=== PATIENT | female | born 1985 | race Two or more races ===

== ENCOUNTER 2024-07-10 11:26 | Inpatient (IN) | payer OTHER, SELFPAY ==
[2024-07-10] VITALS (17 sets, daily range): BP systolic 111–154; BP diastolic 75–134; BMI 31.5
[2024-07-10] MEDS: NSS 1000 IV ×2 (08:33→22:42)
[2024-07-10 08:39] LABS: % Basophils 0.3 % (0-2); % Eosinophils 0.2 % (0-6); % Immature Granulocytes 0.4 % (0-0.5); % Lymphocytes 12.3 % (20.5-51.1); % Neutrophils 80.8 % (42.2-75.2); Absolute Lymphocytes 1.3 10^3/uL (1.2-3.4); Absolute Monocytes 0.7 10^3/uL (0.1-0.6); Absolute Neutrophils 8.8 10^3/uL (1.4-6.5); Hematocrit 40.4 % (37.0-47.0); Hemoglobin 13.2 g/dL (12.0-16.0); Mean Corp Hgb Conc. 32.7 g/dL (33.0-37.0); Mean Corpuscular Hgb 29.3 pg (27.0-31.0); Mean Corpuscular Volume 89.6 fL (81.0-99.0); Mean Platelet Volume 9.6 fL (7.4-10.4); Nucleated Red Blood Cells % 0 %; Platelet Count 306 10^3/uL (130-400); Red Blood Cell Count 4.51 10^6/uL (4.20-5.40); Red Cell Dist. Width 12.6 % (11.5-14.5); White Blood Cell Count 10.9 10^3/uL (4.8-10.8)
[2024-07-10 08:39] LABS: Urine Albumin Trace (Neg - Trace); Urine Bilirubin 3+ (Negative); Urine Character Clear (Clear); Urine Color Yellow; Urine Glucose Negative (Negative); Urine Ketone Negative (Negative); Urine Leukocyte 1+ (Negative); Urine Nitrite Positive (Negative); Urine Occult Blood 3+ (Negative); Urine Specific Gravity 1.015 (<1.030); Urine Urobilinogen 4+ (Neg - 1+); Urine pH 6.5 (5.0-9.0)
[2024-07-10 08:49] LABS: ALT (SGPT) 19 U/L (0-35); AST (SGOT) 23 U/L (14-36); Albumin 4.9 g/dl (3.5-5.0); Alkaline Phosphatase 102 U/L (38-126); Blood Urea Nitrogen 23 mg/dl (7-17); Calcium 9.6 mg/dl (8.4-10.2); Carbon Dioxide 24 mmol/L (22-30); Chloride 103 mmol/L (98-107); Estimated Creatinine Clearance 87 ml/min; Glucose 127 mg/dl (70-99); Potassium 4.3 mmol/L (3.5-5.1); Sodium 141 mmol/L (135-145); Total Bilirubin 0.7 mg/dl (0.2-1.3); Total Protein 7.7 g/dl (6.3-8.2); eGFR > 60.00
--- NOTE | 2024-07-10 08:56 | ED.GENMED ---
History of Present Illness
General
Chief Complaint: Abdominal Symptoms
Source: patient
Exam Limitations: none
Time Seen by Provider: 07/10/24 07:54
History of Present Illness
History of Present Illness:
38-year-old female right flank and back pain and right lower quadrant pain for the last 24 hours. Some nausea. Some recent UTI-like symptoms. Was treated for UTI with Macrobid although recent urine culture was unremarkable. Started her she is
yesterday which was normal. Has been told in the past that she may interstitial cystitis
Past History
Past History
ED Past Medical History: Other (Questionable interstitial cystitis)
ED Past Surgical History: Gynecological (Breast reduction)
Review of Systems
Review of Systems
All Other Systems: Not applicable
Constitutional: Denies fever or chills
Phy Exam
Physical Exam
Physical Exam:
GENERAL: Alert and oriented in no apparent distress
EYE: Orbits normal.
NECK: Supple
CARDIAC: Regular rate and rhythm without any obvious murmurs.
LUNGS: Clear breath sounds,normal
ABDOMEN: Soft, without focal tenderness or distention. No CVA tenderness
NEUROLOGICAL: Alert and oriented , grossly non-focal
SKIN: Warm and dry, no rash or lesion, no discoloration, skin intact.
MUSCULOSKELETAL: No edema,no deformity.Good color
PSYCH: Normal and appropriate interaction.
Course
Orders/Labs/Results
Orders:
Orders
07/10/24 08:15
HCG, Serum Qualitative Screen Urgent
07/10/24 08:18
CMP [Comprehensive Metabolic Panel] Urgent
Complete Blood Count/With Diff Urgent
07/10/24 08:24
Urinalysis Reflex To Culture Urgent
Date Specimen was Collected: 07/10/24
Time Specimen was Collected: 08:21
Comment: Has menstrual period
Urine Microscopic Reflex Cult Urgent
Urine Culture Urgent
MARQUITA Source: U
Specimen Description:
Date Specimen was Collected: 07/10/24
Time Specimen was Collected: 08:21
07/10/24 08:30
CT Abd/pel Without Iv Or Oral Urgent
Comment:
Reason For Exam: Right lower quadrant/right flank pain
IV Insert/Care/Rem.- Treatment PRN
0.9% Sodium Chloride 1000 ml [Nss] 1,000 ml IV BOLUS
Test Result ONCE
07/10/24 10:13
Ketorolac [Toradol] 15 mg IV NOW STA
07/10/24 10:20
Cefepime HCl [Maxipime] 2,000 mg IV NOW STA
Abnormal Lab Results
07/10/24 07/10/24
08:18 08:24
WBC 10.9 H 10^3/uL
(4.8-10.8)
MCHC 32.7 L g/dL
(33.0-37.0)
Absolute Neuts (auto) 8.8 H 10^3/uL
(1.4-6.5)
Absolute Monos (auto) 0.7 H 10^3/uL
(0.1-0.6)
Neutrophils % 80.8 H %
(42.2-75.2)
Lymphocytes % 12.3 L %
(20.5-51.1)
BUN 23 H mg/dl
(7-17)
Glucose 127 H mg/dl
(70-99)
Ur Occult Blood Reflex 3+ A
(Negative)
Urine Nitrite (Reflex) Positive A
(Negative)
Urine Bilirubin 3+ A
(Negative)
Urine Urobilinogen 4+ A
(Neg - 1+)
Leukocyte Esterase Rfl 1+ A
(Negative)
Urine RBC 3-6 A /HPF
(0-2)
Urine Bacteria (Reflex) Many A
(Negative)
07/10/24 08:18
07/10/24 08:18
Vital Signs
Initial and Last Documented VS:
Initial Vital Signs
Temp Pulse Resp BP Pulse Ox
98.3 F 110 16 150/115 98
07/10/24 07:50 07/10/24 07:50 07/10/24 07:50 07/10/24 07:50 07/10/24 07:50
Last Documented Vital Signs
Temp Pulse Resp BP Pulse Ox
98.3 F 99 16 144/95 99
07/10/24 07:50 07/10/24 10:12 07/10/24 10:12 07/10/24 10:12 07/10/24 10:12
MDM/Problems Addressed
Differential Diagnosis Includes:
Most suspicious of a kidney stone or urologic issue given patient's recent urinary symptoms. To consider appendicitis or ovarian issue. Workup in progress.
*Radiology
Radiology exam reviewed: radiology read reviewed (7 mm obstructing stone right UVJ with hydro-)
*Pulse Oximetry
Patient hypoxic: no
*Critical Care Note
Total Time (30-74mins, 75-104mins- exclusive of procedures): Not Applicable
Update Note
Update Note:
Urinalysis concerning for infection. Discussed with urology. Will go to the OR. Antibiotics. Admit to medicine.
ED Attending Note
-
Portions of this chart may have been created with voice recognition software.� Occasional wrong word or��sound alike� substitutions may have occurred due to the inherent limitations of voice recognition software.
Discharge Plan
Departure
Patient Disposition: Admit
Date of Disposition: 07/10/24
Time of Disposition: 10:21
Presentation/result/management discussed w/ accepting MD/DO: Urology
Discharge Problem:
7 mm obstructing right UVJ stone, Possible UTI
Referrals:
Joao Julien MD [Family Provider] -
Interventions
Interventions:
*Risk Screen - Suicide Last Done: 07/10/24 07:50
*General Assessment Last Done: 07/10/24 08:07
*Neglect/Abuse Screening Last Done: 07/10/24 07:50
ED- Fall Risk Assessment Last Done: 07/10/24 08:07
*ED COVID-19 Vaccine History Last Done: 07/10/24 08:07
PB-Xysfkf-Xlefytglyv Assessment Last Done: 07/10/24 08:07
Discharge Date and Time
Print Language: SETSWANA
[2024-07-10 08:57] LABS: HCG, Serum Qualitative Screen Negative
[2024-07-10 08:57] LABS: Urine Amorphous Seen
[2024-07-10 09:05] LABS: Urine Bacteria Many (Negative)
[2024-07-10] MEDS: TORADOL 15 MG IV ×2 (10:15→14:48)
[2024-07-10] MEDS: MAXIPIME 2000 MG IV (10:31)
--- NOTE | 2024-07-10 11:02 | HPS.HSE ---
Family Physician
-
Family Physician: Joao Julien
Chief Complaint
-
Right flank pain and dysuria.
History of Present Illness
Patient is a 38-year-old female with no prior medical history who presents with few weeks of urinary complaints including dysuria. Over the past 24 hours or so patient developed right flank and right lower quadrant pain radiating to the pubic area.
She has pain with urination. She denies any fever or chills. She has been treated with Macrobid for presumed urinary tract infection/cystitis. Given persistent and escalating symptoms she presented to the emergency room for further evaluation.
Medical History
Past Medical History
Past Medical History: Reports NIDDM (Prediabetes)
Past Surgical History: Reports None
Social History
Tobacco: Non-smoker
Alcohol: None
Drug: None
Living: With Family
Family History
Family History: Not pertinent
Allergies / Home Medications
Allergies reflects when Allergies were last updated in [email or web address].
Home Medications with original date entered in [email or web address]
Allergy/Medication List:
Allergies
Allergy/AdvReac Type Severity Reaction Status Date / Time
No Known Allergies Allergy Verified 07/10/24 08:11
Home Medications
acetaminophen 500 mg tablet (Tylenol Extra Strength) 1,000 mg PO BIDPRN PRN MILD PAIN 07/10/24
alprazolam 0.5 mg tablet (Xanax) 0.5 mg PO TIDPRN PRN ANXIETY 07/10/24
cetirizine 10 mg tablet (Zyrtec) 10 mg PO DAILY 07/10/24
cholecalciferol (vitamin D3) 25 mcg (1,000 unit) capsule (Vitamin D3) 25 mcg PO DAILY 07/10/24
escitalopram oxalate 10 mg tablet (Lexapro) 10 mg PO DAILY 07/10/24
famotidine 20 mg tablet (Pepcid) 20 mg PO DAILYPRN PRN GERD 07/10/24
metformin 500 mg tablet,extended release 24 hr 500 mg PO DAILY 07/10/24
methocarbamol 500 mg tablet 500 mg PO TIDPRN PRN MUSCLE PAINS 07/10/24
naproxen sodium 220 mg tablet (Aleve) 440 mg PO BIDPRN PRN MILD PAIN 07/10/24
phenazopyridine 95 mg tablet 95 mg PO DAILYPRN PRN UTI SYMPTOMS 07/10/24
Review of Systems
-
A 12 point ROS was completed and negative except as noted: Yes
: Reports See HPI
Physical Exam
Vital Signs
Vital Signs
Temp Pulse Resp BP Pulse Ox
98.3 F 99 16 144/95 99
07/10/24 07:50 07/10/24 10:12 07/10/24 10:12 07/10/24 10:12 07/10/24 10:12
Physical Exam
General: Well Developed, Well Nourished and No Apparent Distress
HEENT: NormoCephalic, Moist mucous membranes and Atraumatic
Respiratory: Clear
Cardiac: S1/S2 and Regular Rhythm; No Murmur or Rub
GI: Soft, Non Tender, Non Distended and Normal Bowel Sounds; No Organomegaly
Rectal: Deferred by Provider
Musculoskeletal: No Clubbing, No Cyanosis and No Edema
Skin: No Rash
Neuro: Nonfocal/grossly intact
Laboratory Results
-
07/10/24 08:18
07/10/24 08:18
Laboratory Results
Total Bilirubin 0.7 mg/dl (0.2-1.3) 07/10/24 08:18
AST 23 U/L (14-36) 07/10/24 08:18
ALT 19 U/L (0-35) 07/10/24 08:18
Alkaline Phosphatase 102 U/L (38-126) 07/10/24 08:18
Impression/Plan
-
IMPRESSION:
Obstructive uropathy secondary to 7 mm stone at the right ureterovesicular junction.
Complicated UTI.
Other conditions.
Prediabetes.
Obesity with BMI of 31
PLAN:
Obstructive uropathy secondary to 7 mm stone in the right ureter fascicular junction. Mild right hydronephrosis
Complicated UTI
Urology consultation with plan for cystoscopy and stone manipulation/stent
Empiric antibiotics: Ceftriaxone pending urine cultures
IV hydration
Analgesia
Prediabetes.
Check hemoglobin A1c
Serial blood glucose monitoring
Hold metformin acutely
--- NOTE | 2024-07-10 13:02 | W.PN.URO.CBU ---
Today's Communication / Plan
-
npo to op[ room
Assessment / Plan
-
mm stone 3 weeks wir uti sxs and pos nitruores for op room today will try removal id-f stable other wswe just styent pt aware consented and alt txs s=described
Diagnosis
-
Date of Service: July 10, 2024
-
Patient Diagnosis:
rt 7 mm uvj stone on rt x 3 weesk pos notires and leukocytosis
Post Op Day:
Subjective
-
pain no chills nor fver
Objective
-
Vital Signs
Temp Pulse Resp BP Pulse Ox
98.3 F 99 16 144/95 99
07/10/24 07:50 07/10/24 10:12 07/10/24 10:12 07/10/24 10:12 07/10/24 10:12
Laboratory Results
07/10/24 08:18
07/10/24 08:18
Review of Systems
-
: Dysuria, Frequency, Urgency and Dark Urine
Physical Exam
-
General - well developed, well nourished, no acute distress non toxic
Chest - clear bilaterally
Abdomen - soft, non-tender, positive bowel sounds, no CVAT, no incisional pain or distention
Genitalia - normal
Rectal - normal
Skin - warm & dry with no rash
Neuro - AOx3, no motor deficits
Extremities - no clubbing, no cyanosis, no edema
Incision - clean, dry
Dressing - clean, dry, intact
Care Review
Data Reviewed
Discussed with: Hospitalist and Nursing
CT Scan: Image Pers Reviewed
[2024-07-10] MEDS: MORPHINE SULFATE 2 MG IV (13:10)
[2024-07-10] MEDS: FLUSH (NSS) 1 FLUSH IV (13:10)
--- NOTE | 2024-07-10 15:02 | EDRN ---
Patient taken to room 436-1 by industrial engineering technician.
[2024-07-10] MEDS: STERILE WATER FOR INJECTION 10 ML IV (16:10)
[2024-07-10] MEDS: ROCEPHIN 1000 MG IV (16:10)
[2024-07-10 16:27] LABS: Glucose - Point of Care 95 mg/dl (70-99)
--- NOTE | 2024-07-10 17:51 | W.SUR.POST ---
Surgical Immediate Post Op
Note
Pre Op Diagnosis:
rt distal uretral stone with uti coilc
Post Op Diagnosis: same
Procedure Performed: rt ureteroscpy laser basket extractionstent
Primary Surgeon: ahsan
Secondary Surgeons:
Anesthesia:
general dr Elkins
Estimated Blood Loss:1 cc
Fluids: nss
Drains/Shunts: 6 fr 24 ccm jj stent
Specimens/Cultures: stones
Doppler/Duplex/Angio (Y/N):
Complications: 0
Operative Findings: lg stone in [place] sheatg 7mm horiziontal lie lsaered removed stented
[2024-07-10 17:55] LABS: Glucose - Point of Care 96 mg/dl (70-99)
[2024-07-11 07:05] VITALS: BP 106/72
[2024-07-11 08:16] LABS: % Basophils 0.3 % (0-2); % Eosinophils 0.1 % (0-6); % Immature Granulocytes 0.4 % (0-0.5); % Lymphocytes 21.1 % (20.5-51.1); % Monocytes 8.3 % (1.7-9.3); % Neutrophils 69.8 % (42.2-75.2); Absolute Lymphocytes 1.9 10^3/uL (1.2-3.4); Absolute Monocytes 0.7 10^3/uL (0.1-0.6); Absolute Neutrophils 6.2 10^3/uL (1.4-6.5); Hemoglobin 11.4 g/dL (12.0-16.0); Mean Corp Hgb Conc. 32.6 g/dL (33.0-37.0); Mean Corpuscular Hgb 29.8 pg (27.0-31.0); Mean Corpuscular Volume 91.4 fL (81.0-99.0); Mean Platelet Volume 9.7 fL (7.4-10.4); Nucleated Red Blood Cells % 0 %; Platelet Count 280 10^3/uL (130-400); Red Blood Cell Count 3.83 10^6/uL (4.20-5.40)
[2024-07-11 08:42] LABS: Blood Urea Nitrogen 17 mg/dl (7-17); Calcium 8.9 mg/dl (8.4-10.2); Carbon Dioxide 23 mmol/L (22-30); Chloride 106 mmol/L (98-107); Estimated Creatinine Clearance 109 ml/min; Glucose 102 mg/dl (70-99); Sodium 141 mmol/L (135-145); eGFR > 60.00
[2024-07-11] MEDS: LEXAPRO 10 MG PO (08:50)
[2024-07-11] MEDS: ZYRTEC 10 MG PO (08:51)
[2024-07-11] MEDS: STERILE WATER FOR INJECTION 10 ML IV (09:00)
[2024-07-11] MEDS: ROCEPHIN 1000 MG IV (09:00)
--- NOTE | 2024-07-11 09:23 | W.DS.TRANS ---
DC Summary - File Conversion Operator
-
Discharge Instructions:
Discharge Diagnosis/Procedures Nephrolithiasis.
Obstructive uropathy
Suspected UTI
Diet Regular
Instructions:
Stand-Alone Forms:
Changes to Home Medications: Yes
Discharge Medications:
DC Medications w/original date entered in [employer]
acetaminophen 500 mg tablet (Tylenol Extra Strength) 1,000 mg PO BIDPRN PRN MILD PAIN 07/10/24
alprazolam 0.5 mg tablet (Xanax) 0.5 mg PO TIDPRN PRN ANXIETY 07/10/24
cetirizine 10 mg tablet (Zyrtec) 10 mg PO DAILY 07/10/24
cholecalciferol (vitamin D3) 25 mcg (1,000 unit) capsule (Vitamin D3) 25 mcg PO DAILY 07/10/24
escitalopram oxalate 10 mg tablet (Lexapro) 10 mg PO DAILY 07/10/24
famotidine 20 mg tablet (Pepcid) 20 mg PO DAILYPRN PRN GERD 07/10/24
metformin 500 mg tablet,extended release 24 hr 500 mg PO DAILY 07/10/24
methocarbamol 500 mg tablet 500 mg PO TIDPRN PRN MUSCLE PAINS 07/10/24
naproxen sodium 220 mg tablet (Aleve) 440 mg PO BIDPRN PRN MILD PAIN 07/10/24
phenazopyridine 95 mg tablet 95 mg PO DAILYPRN PRN UTI SYMPTOMS 07/10/24
cephalexin 500 mg capsule 500 mg PO Q8H #15 caps 07/11/24
phenazopyridine 100 mg tablet 100 mg PO TIDPRN PRN dysuriea #10 tabs 07/11/24
Home Medication Changes
Keflex, Pyridium
Pending Results: No
[2024-07-11] MEDS: Pyridium 100 MG PO (09:52)
--- NOTE | 2024-07-11 09:55 | CM ---
clinical manager home care reviewed patient's chart and met with patient and patient and patient is in the area for work, patient resides in [place] with her spouse, patient is independent with adl's and ambulation, no dme, patient is for discharge today and
patient's mother to transport patient. Patient does not have a local pharmacy but has asking for her prescriptions to be sent to [facility] on [facility]. Physician made aware.
PCP: Dr Joao Julien
Pharmacy: [facility] on [facility].
Plan; Home today
[2024-07-11 10:04] LABS: Glycohemoglobin (HgbA1c) 5.3 % (4.0-5.6)
[2024-07-11 11:57] VITALS: BP 137/92
[2024-07-11] MEDS: TYLENOL 1000 MG PO (12:26)
--- NOTE | 2024-07-11 13:11 | W.PN.URO.CBU ---
Today's Communication / Plan
-
[facility]
Assessment / Plan
-
mm stone 3 weeks wir uti sxs and pos nitruores f stoine removed 07/10 now cx 60 k mixed jana would discharge when ok by hospital;st stent out 1 week
Diagnosis
-
Date of Service: July 11, 2024
-
Patient Diagnosis:
Post Op Day:
Patient Diagnosis:
rt 7 mm uvj stone on rt x 3 weesk pos notires and leukocytosis
Post Op Day:
Subjective
-
overalnetter f=some stent discomfort
Objective
-
Vital Signs
Temp Pulse Resp BP Pulse Ox
99.1 F 117 18 137/92 98
07/11/24 12:28 07/11/24 11:57 07/11/24 11:57 07/11/24 11:57 07/11/24 11:57
Intake and Output
07/10/24 07/11/24 07/12/24
06:59 06:59 06:59
Intake Total 1010 / 1010
Balance 1010 / 1010
Intake:
Oral fluids 960 / 960
IV fluids (Total) 50 / 50
normosol 50 / 50
Other:
Number of approximated MODERATE 3
amounts of urine
Laboratory Results
07/11/24 07:39
07/11/24 07:39
Review of Systems
-
: Dysuria, Frequency and Urgency
Physical Exam
-
General - well developed, well nourished, no acute distress
Chest - clear bilaterally
Abdomen - soft, non-tender, positive bowel sounds, no CVAT, no incisional pain or distention
Genitalia - normal
Rectal - normal
Skin - warm & dry with no rash
Neuro - AOx3, no motor deficits
Extremities - no clubbing, no cyanosis, no edema
Incision - clean, dry
Dressing - clean, dry, intact
Care Review
Data Reviewed
Discussed with: Hospitalist
[2024-07-12 20:22] LABS: Stone Analysis Mass 4 mg
== END 2024-07-11 13:15 | disposition home or self-care (01) | DRG 661 ==
LOC: 4 WEST ACU 11:26
PROVIDERS: ADMITTING PHYSICIAN Internal Medicine; CONSULT PHYSICIAN Specialist; EMERGENCY PHYSICIAN Emergency Medicine; FAMILY PHYSICIAN Physical Medicine & Rehabilitation Pain Medicine
PROC: 0T768DZ Dilation of Right Ureter with Intraluminal Device, Via Natural or Artificial Opening Endoscopic (ICD-10-PCS; 2024-07-10)
PROC: 0TC68ZZ Extirpation of Matter from Right Ureter, Via Natural or Artificial Opening Endoscopic (ICD-10-PCS; 2024-07-10)
DX: N13.6 Pyonephrosis (principal); R73.03 Prediabetes; E66.9 Obesity, unspecified; Z68.31 Body mass index [BMI] 31.0-31.9, adult; Z79.84 Long term (current) use of oral hypoglycemic drugs
CPT/HCPCS: 74018; 74176; 76000; 80048; 80053; 81003; 81015; 82365; 82962; 83036; 84703; 85025; 87086; 96361; 96374; 96375; 99285; C2617